=== PATIENT | female | born 1940 | race Caucasian/White ===

== ENCOUNTER 2018-08-23 15:17 | Emergency (ER) | payer MEDICARE ==
[~2018-08-23] VITALS: Ht 160 cm; Wt 80.9 kg
[~2018-08-23 15:17] MED LIST: CEPHALEXIN500 M1 PO; DALIRESP500 MCG PO; HCTZ 25MG TAB25 MG PO; INCRUSE EL62.5 MCG/A IH; IPRATROPIUM BROM3 M1 IH; LEVAQUIN 5500 MG/TA1 PO; PREDNISONE10 MG PO; PROVENTIL0.09 MG/A1 IH; RT ADVAIR HFA 1112 G IH; RT SPIRIVA18 MCG IH; SYNTHROID0.112 MG/T PO; TENORMIN 5050 MG/TAB PO
[2018-08-23 15:42] VITALS: TEMP 98.7
[2018-08-23 16:34] LABS: BASO # 0.1 (0.0-0.2); BASO % 0.6 % (0.0-2.0); EOS % 0.1 % (0-4.0); GRAN # 5.6 (1.4-6.5); GRAN % 68.5 % (42.2-75.2); HEMATOCRIT 38.5 % (37.0-47.0); HEMOGLOBIN 12.7 g/dl (12.5-16.0); LYMPH # 1.8 (1.2-3.4); LYMPH % 21.6 % (20.0-51.0); MEAN CELL VOLUME 96 fl (80.0-100.0); MEAN CORPUSCULAR HEMOGLOBIN 32 pg (27.0-31.0); MEAN CORPUSCULAR HGB CONC 33 g/dl (33.0-37.0); MEAN PLATELET VOLUME 9.5 fl (7.4-10.4); MONO # 0.8 (0.1-0.6); MONO % 9.1 % (1.7-9.3); PLATELET COUNT 253 K/mm3 (130-400); REDCELL DISTRIBUTION WIDTH-CV 13.1 % (11.5-14.5)
[2018-08-23 16:41] LABS: PROTHROMBIN TIME 11.3 SECONDS (9.7-12.8)
[2018-08-23 16:43] LABS: ALANINE AMINOTRANSFERASE 37 U/L (9-52); ALBUMIN 3.9 gm/dL (3.5-5.0); ALKALINE PHOSPHATASE 81 U/L (50-136); ANION GAP 5 mmol/L (7-16); AST,SGOT 28 U/L (15-37); BILIRUBIN,TOTAL 0.3 mg/dL (0.0-1.0); BLOOD UREA NITROGEN 28 mg/dL (7-17); CALCIUM 9.4 mg/dL (8.4-10.2); CARBON DIOXIDE 27 mmol/L (22-30); CHLORIDE 109 mmol/L (98-107); CREATININE, serum 1.08 mg/dL (0.52-1.25); GLUCOSE 98 mg/dL (74-106); POTASSIUM 3.9 mmol/L (3.4-5.0); SODIUM 140 mmol/L (137-145); TOTAL PROTEIN 6.8 gm/dL (6.4-8.2)
[2018-08-23 16:49] LABS: D-DIMER < 200.00 ng/mLDDu (200-230)
[2018-08-23 17:18] LABS: TROPONIN-I < 0.012 ng/mL (0.000-0.034)
[2018-08-23 18:00] VITALS: BP 144/78
[2018-08-23 18:30] VITALS: PULSE 86
== END 2018-08-23 18:36 | disposition home or self-care (01) ==
LOC: COL.ER 15:17
PROVIDERS: Emergency Medicine
DX: R00.0 Tachycardia, unspecified (principal); E86.0 Dehydration; I10 Essential (primary) hypertension; J44.9 Chronic obstructive pulmonary disease, unspecified; E03.9 Hypothyroidism, unspecified; Z90.49 Acquired absence of other specified parts of digestive tract; Z90.89 Acquired absence of other organs; Z90.710 Acquired absence of both cervix and uterus; Z87.891 Personal history of nicotine dependence

== ENCOUNTER 2021-05-23 11:46 | Inpatient (IN) | payer MEDICARE ==
[~2021-05-23] VITALS: Ht 160 cm; Wt 82.9 kg
[~2021-05-23 11:46] MED LIST changes: +LEVAQUIN 750MG750 M1 PO; +SPIRIVA RE2.5 MCG/Ac IH; +ZOLOFT 25MG25 MG PO
[2021-05-23 12:40] LABS: BASO % 0.4 % (0.0-2.0); GRAN # 3.8 (1.4-6.5); GRAN % 71.2 % (42.2-75.2); HEMOGLOBIN 11.2 g/dl (12.5-16.0); LYMPH # 0.8 (1.2-3.4); LYMPH % 15.8 % (20.0-51.0); MEAN CELL VOLUME 96 fl (80.0-100.0); MEAN CORPUSCULAR HEMOGLOBIN 31 pg (27.0-31.0); MEAN CORPUSCULAR HGB CONC 32 g/dl (33.0-37.0); MEAN PLATELET VOLUME 10.3 fl (7.4-10.4); MONO # 0.7 (0.1-0.6); MONO % 12.2 % (1.7-9.3); PLATELET COUNT 228 K/mm3 (130-400); RED BLOOD COUNT 3.66 M/mm3 (4.10-5.30); REDCELL DISTRIBUTION WIDTH-CV 14.8 % (11.5-14.5)
[2021-05-23 12:41] LABS: HEMATOCRIT 35.2 % (37.0-47.0)
[2021-05-23 12:42] LABS: ALANINE AMINOTRANSFERASE 44 U/L (4-34); ALBUMIN 3.7 gm/dL (3.5-5.0); ALKALINE PHOSPHATASE 102 U/L (50-136); ANION GAP 1 mmol/L (7-16); AST,SGOT 51 U/L (15-37); BILIRUBIN,TOTAL 0.2 mg/dL (0.0-1.0); BLOOD UREA NITROGEN 10 mg/dL (7-17); CALCIUM 8.8 mg/dL (8.4-10.2); CARBON DIOXIDE 32 mmol/L (22-30); CHLORIDE 100 mmol/L (98-107); CREATININE, serum 0.67 (0.52-1.25); GLUCOSE 99 mg/dL (74-106); SODIUM 133 mmol/L (137-145); TOTAL PROTEIN 6.9 gm/dL (6.4-8.2)
[2021-05-23 12:54] LABS: TROPONIN-I < 0.012 ng/mL (0.000-0.035)
[2021-05-23 16:06] VITALS: BP 117/64; PULSE 103; TEMP 99.3
--- NOTE | 2021-05-23 18:27 | NUR ---
1630 REPORT RECEIVED FROM NURSE MICHEL. PT TO BE ADMITTED FROM THE E.R. PT NOTEDTO BE ON 2 L OXYGEN VIA NC. PT AAOX3. PT NOTED TO HAVE SOME SHAKING OF THE HANDS. ADMISSION ASSSESSMENT COMPLETED. PT ORIENTED TO THE ROOM AND THE CALL-LIGHT. ISOLATION PRECAUTION MAINTAINED. CALL-LIGHT IN REACH. COMFORT MEASURES IN PLACE. PT WAITING ON HER MEAL TO ARRIVE. WILL CONTINUE TO MONITOR.
[2021-05-23 19:49] VITALS: BP 102/62; PULSE 103; TEMP 99.1
--- NOTE | 2021-05-23 21:19 | NUR ---
Pt has been pretty shaky and weak.She has been complaining of body ache. Tylenol was given. Daughter called for update. Currently on 2 L of oxygen. Will continue to monitor.
[2021-05-24 00:22] VITALS: BP 97/52; PULSE 92; TEMP 98.4
[2021-05-24 02:51] VITALS: BP 98/61; PULSE 70; TEMP 97.9
[2021-05-24 07:25] VITALS: BP 115/53; PULSE 84; TEMP 98
--- NOTE | 2021-05-24 08:00 | NUR ---
Patient laying in bed on her left side. A&Ox4. VSS 3L NC O2. Dyspnea at rest. IV CDI. Denies pain and discomfort. Patient a standby assist with walker to the bathroom. Droplet/contact precautions in place. No further needs expressed from the patient. Call light within reach
--- NOTE | 2021-05-24 10:28 | NUR ---
The patient is COVID positive. GRETTA contacted the patient's room phone to discuss discharge plan. The patient lives alone in [place]. She states that her daughter, Rosi Smith (ph#[phone]), also lives in [place]. She reports that she is normally independent with ADLs and has a rollator. She reports that she has oxygen at home that she uses nocturnally and as needed during the day. She states that she just got private duty services set up from [facility]. Her first visit with them was this week. She states that she hired them as needed. The patient's PCP is Dr. Iveth Lowery and she receives her medications from [facility]. She reports no difficulties obtaining her meds. The patient does not have a DPOA-HC. She reports that she would be interested in completing one while here. SW collaborated with the patient's RN. The patient's RN brought in the DPOA-HC form to the patient. The patient designated her daughter, Rosi, as her DPOA-HC and then her son, Mynor Smith, as the alternate. Mynor lives in [place]. GRETTA and the patient's RN witnessed the patient's signature. GRETTA placed a copy in the patient's chart. The copies of the patient's DPOA-HC will be placed in the patient's d/c packet. The patient states that she would like to return home upon discharge. GRETTA then contacted and updated the patient's daughter, Rosi. Rosi reports that she has some concerns about the patient returning home too soon. She states that the last time the patient returned home from the hospital, she was not ready and could not get around well. She states that she had to provide a lot of assistance to the patient at home. She inquired about post-acute rehab. GRETTA informed her of the different post-acute rehab options, but how most facilities require the patient to be 10 days out from when they tested positive, before they can take them. Rosi verbalized understanding. She would like to see how the patient does. SW to ask the hospitalist for PT/OT to be ordered. *Discharge plan: possibly home. Will await therapy's recs*
[2021-05-24] MEDS ORDERED: CARDIZEM 30MG T30 MG PO (10:53)
[2021-05-24] MEDS ORDERED: ZYRTEC 10MG10 MG PO (10:54)
[2021-05-24] MEDS ORDERED: PRILOSEC 20MG20 MG PO (10:56)
[2021-05-24] MEDS ORDERED: SINGULAIR 110 MG/TAB PO (10:56)
[2021-05-24] MEDS ORDERED: MUCINEX 60600 MG/TA1 PO (10:58)
[2021-05-24 11:22] VITALS: BP 113/62; PULSE 94; TEMP 97.9
[2021-05-24 15:28] VITALS: BP 122/58; PULSE 98; TEMP 98
--- NOTE | 2021-05-24 18:20 | NUR ---
Patient had an uneventful day. VSS 2L NC O2. Reported increased weakness with ambulation, standby assist with walker. IV CDI. Reports discomfort from laying in bed. Pain medication given when requested. Reported an episode of diarrhea. No further needs expressed from the patient. Call light within reach. Droplet/contact precautions in place
[2021-05-24 20:52] VITALS: BP 125/83; PULSE 88; TEMP 97.8
[2021-05-25] VITALS (7 sets, daily range): BP systolic 98–130; BP diastolic 50–84; PULSE 75–884; TEMP 97.6–99
--- NOTE | 2021-05-25 03:48 | NUR ---
Patient is alert and oriented. She denies any pain or SOB. She asked if she can have fluids in her oxygen for she complains of irritation in her nose. RT notified and its done. She slept most of the night. No complains noted, call light is within reach.
--- NOTE | 2021-05-25 09:02 | NUR ---
Pt awake and alert upon entry, no C/O pain at this time. Talkative. Shift assessments complete, left Pt call light in reachg, bed in lowest position.
--- NOTE | 2021-05-26 02:26 | NUR ---
Patient was coughing bad last night. RN gave her the PRN cough meds and Tylenol for she complained of back pain. After that RN checked her for follow up and she was asleep. Call light is within reach and continue to monitor.
[2021-05-26 04:07] VITALS: BP 123/56; PULSE 83; TEMP 98
[2021-05-26 08:36] VITALS: BP 126/65; PULSE 86; TEMP 98.7
--- NOTE | 2021-05-26 09:23 | NUR ---
Pt napping upon entry, easily awakened. No C/O pain at this time. Shift assessment complete, left Pt call light in reach, bed in lowest position.
--- NOTE | 2021-05-26 10:00 | NUR ---
SW informed by physician that patient would be going to [facility] in [place]. SW assisted with sending updates to facility. GRETTA will continue to [facility].
[2021-05-26 12:40] VITALS: BP 115/65; PULSE 119; TEMP 98.3
[2021-05-26 17:30] VITALS: BP 133/61; PULSE 91; TEMP 98.8
[2021-05-26 19:44] VITALS: BP 135/68; PULSE 93; TEMP 98
[2021-05-26 22:58] VITALS: BP 126/64; PULSE 97; TEMP 98.3
--- NOTE | 2021-05-27 03:03 | NUR ---
Patient is alert and oriented. She gets up standby with walker. She is at 3L and have dyspnea with exertion. She have her Pulse Oximeter in her pocket to check her O2 in the bathroom. She maintained the saturation between 92 to 94%. She is anxious about her oxygenation. She got Tylenol PRN last night for back pain. Otherwise she slept good. Continue to follow.
[2021-05-27 04:10] VITALS: BP 115/77; PULSE 90; TEMP 986
--- NOTE | 2021-05-27 09:01 | NUR ---
Pt sleeping upon entry, easily awakened. No C/O pain at this time. Shift saaessments complete, left Pt call light in reach, bed in lowest position.
[2021-05-27 09:27] VITALS: BP 138/63; PULSE 88; TEMP 98.6
--- NOTE | 2021-05-27 11:17 | NUR ---
The hospitalist notified GRETTA that he has spoken to Dr. Lowery at [facility] and Dr. Lowery has accepted the patient. GRETTA contacted and faxed updates to Hilario at [facility]. Hilario reports that their team reviewed the referral and they are declining the patient at this time, due to being too acute. She states that their nursing team and [employer] are the ones who make the final decision on if they can accept a patient or not. GRETTA updated the hospitalist and discussed IPR. An IPR consulted was ordered and GRETTA notified IPR Director, Alice.
[2021-05-27 11:51] VITALS: BP 113/67; PULSE 96; TEMP 98.2
[2021-05-27] MEDS ORDERED: MONODOX100 PO (12:45)
[2021-05-27] MEDS ORDERED: VEKLURY IV (12:46)
[2021-05-27] MEDS ORDERED: LOVENOX 4040 MG/0.4 SQ (12:47)
[2021-05-27] MEDS ORDERED: ROBITUSSIN DM 105 ML PO (12:47)
[2021-05-27] MEDS ORDERED: DECADRON6 MG PO (12:47)
[2021-05-27] MEDS ORDERED: TYLENOL 325MG325 MG PO (12:47)
[2021-05-27] MEDS ORDERED: RT Albuterol HFA MDI IH (12:48)
[2021-05-27] MEDS ORDERED: CARDIZEM 30MG T30 MG PO (12:49)
--- NOTE | 2021-05-27 13:41 | NUR ---
Hilario, at [facility], contacted GRETTA back. Hilario reports that their doctor spoke to their FRUIT INSPECTOR and they are now able to take the patient. SW updated the hospitalist, patient, and the patient's daughter (Rosi). The patient and Rosi would like to pursue with [facility]. Rosi reports that they are aware that they may have to private pay for the ambulance ride, but would like to go ahead and go by ambulance. The patient is to discharge today, 05/27, to [facility]. Transportation was scheduled at 1400, via [facility]. SW notified the patient, her RN, Hilario at , and the patient's daughter (Rosi) of the time. They were all agreeable to the time. GRETTA read the IM and the EMS Transfer Consent form outloud to the patient over the phone. The patient verbalized understanding and gave GRETTA approval to sign both forms on her behalf. No additional needs at this time.
--- NOTE | 2021-05-27 14:56 | NUR ---
Pt transferred to [facility]. Pt transported via [facility].
[2021-06-29] MEDS ORDERED: AMOXICILLIN 8751 TAB PO (00:29)
== END 2021-05-27 14:58 | disposition swing bed (61) | DRG 177 ==
LOC: COL.ER 11:46 → MEDICAL 13:39
PROVIDERS: Physician Assistant; ADMIT Internal Medicine
PROC: XW033E5 Introduction of Remdesivir Anti-infective into Peripheral Vein, Percutaneous Approach, New Technology Group 5 (ICD-10-PCS; principal; 2021-05-25)
DX: U07.1 COVID-19 (principal); J12.82 Pneumonia due to coronavirus disease 2019; J96.01 Acute respiratory failure with hypoxia; J44.0 Chronic obstructive pulmonary disease with (acute) lower respiratory infection; G72.9 Myopathy, unspecified; F41.9 Anxiety disorder, unspecified; E89.0 Postprocedural hypothyroidism; Z90.49 Acquired absence of other specified parts of digestive tract; Z90.710 Acquired absence of both cervix and uterus; Z87.891 Personal history of nicotine dependence
CPT/HCPCS: 99223-AI; 99232-AI; 99233-AI; 99239; J0696; J7050; J8540

== ENCOUNTER 2021-06-28 19:27 | Emergency (ER) | payer MEDICARE ==
[~2021-06-28] VITALS: Ht 160 cm; Wt 81.4 kg
[~2021-06-28 19:27] MED LIST changes: +CARDIZEM 30MG T30 MG PO; +DECADRON6 MG PO; +LOVENOX 4040 MG/0.4 SQ; +MONODOX100 PO; +MUCINEX 60600 MG/TA1 PO; +PRILOSEC 20MG20 MG PO; +ROBITUSSIN DM 105 ML PO; +RT Albuterol HFA MDI IH; +SINGULAIR 110 MG/TAB PO; +TYLENOL 325MG325 MG PO; +VEKLURY IV; +ZYRTEC 10MG10 MG PO
[2021-06-28 21:58] LABS: ARTERIAL BLD GAS O2 SATURATION 95.2 % (92-100); ARTERIAL BLD GAS TCO2 CT 30.2; ARTERIAL BLOOD GAS BASE EXCESS 4.8 (-2-2); ARTERIAL BLOOD GAS PCO2 41.2 mmHg (35-45); ARTERIAL BLOOD GAS PO2 73.6 mmHg (80-100); ARTERIAL BLOOD GAS pH 7.47 (7.35-7.45)
[2021-06-28 22:03] LABS: BASO # 0.1 (0.0-0.2); EOS # 0.1 (0.0-0.7); EOS % 0.7 % (0-4.0); GRAN % 69.9 % (42.2-75.2); LYMPH # 1.6 (1.2-3.4); MEAN CELL VOLUME 100 fl (80.0-100.0); MEAN CORPUSCULAR HGB CONC 31 g/dl (33.0-37.0); MEAN PLATELET VOLUME 10.2 fl (7.4-10.4); MONO # 0.8 (0.1-0.6); MONO % 9.8 % (1.7-9.3); PLATELET COUNT 616 K/mm3 (130-400); RED BLOOD COUNT 3.17 M/mm3 (4.10-5.30); REDCELL DISTRIBUTION WIDTH-CV 16.5 % (11.5-14.5)
[2021-06-28 22:04] LABS: HEMATOCRIT 31.7 % (37.0-47.0); HEMOGLOBIN 9.7 g/dl (12.5-16.0); MEAN CORPUSCULAR HEMOGLOBIN 31 pg (27.0-31.0)
[2021-06-28 22:10] LABS: CALCIUM 9.3 mg/dL (8.4-10.2); CREATININE, serum 0.54 (0.52-1.25); POTASSIUM 5.1 mmol/L (3.4-5.0)
[2021-06-29 00:24] VITALS: BP 149/68; PULSE 90; TEMP 98.7
[2021-06-29] MEDS ORDERED: AMOXICILLIN 8751 TAB PO (00:29)
== END 2021-06-28 22:39 | disposition home or self-care (01) ==
LOC: COL.ER 19:27
PROVIDERS: Emergency Medicine
DX: U07.1 COVID-19 (principal); E87.3 Alkalosis; R09.02 Hypoxemia; J44.9 Chronic obstructive pulmonary disease, unspecified; E05.00 Thyrotoxicosis with diffuse goiter without thyrotoxic crisis or storm; Z79.899 Other long term (current) drug therapy

== ENCOUNTER 2021-10-02 12:37 | Inpatient (IN) | payer MEDICARE ==
[~2021-10-02] VITALS: Ht 160 cm; Wt 81.4 kg
[~2021-10-02 12:37] MED LIST changes: +AMOXICILLIN 8751 TAB PO
[2021-10-02 14:16] LABS: BASO # 0.1 K/mm3 (0.0-0.2); BASO % 0.8 % (0.0-2.0); EOS # 0.1 K/mm3 (0.0-0.7); EOS % 0.6 % (0-4.0); GRAN # 8.5 K/mm3 (1.4-6.5); GRAN % 79.8 % (42.2-75.2); LYMPH # 1.1 K/mm3 (1.2-3.4); LYMPH % 10.2 % (20.0-51.0); MEAN CELL VOLUME 86 fl (80.0-100.0); MEAN CORPUSCULAR HGB CONC 27 g/dl (33.0-37.0); MEAN PLATELET VOLUME 10.7 fl (7.4-10.4); MONO # 0.8 K/mm3 (0.1-0.6); MONO % 7.9 % (1.7-9.3); PLATELET COUNT 388 K/mm3 (130-400); RED BLOOD COUNT 2.24 M/mm3 (4.10-5.30); REDCELL DISTRIBUTION WIDTH-CV 17.6 % (11.5-14.5)
[2021-10-02 14:18] LABS: HEMATOCRIT 19.2 % (37.0-47.0); HEMOGLOBIN 5.2 g/dl (12.5-16.0); MEAN CORPUSCULAR HEMOGLOBIN 23 pg (27.0-31.0)
[2021-10-02 14:32] LABS: ALANINE AMINOTRANSFERASE 20 U/L (0-55); ALBUMIN 3.5 gm/dL (3.4-4.8); ALKALINE PHOSPHATASE 79 U/L (40-150); ANION GAP 11 mmol/L (7-16); AST,SGOT 27 U/L (5-34); BILIRUBIN,TOTAL 0.3 mg/dL (0.2-1.2); BLOOD UREA NITROGEN 10 mg/dL (10-20); CALCIUM 8.7 mg/dL (8.4-10.2); CARBON DIOXIDE 29 mmol/L (23-31); CHLORIDE 101 mmol/L (98-107); CREATININE, serum 0.72 mg/dL (0.57-1.11); GLUCOSE 120 mg/dL (70-99); POTASSIUM 4.1 mmol/L (3.5-4.5); SODIUM 141 mmol/L (136-145); TOTAL PROTEIN 6.9 gm/dL (6.2-8.1)
[2021-10-02 14:41] LABS: TROPONIN-I < 0.010 ng/mL (0.00-0.033)
[2021-10-02] MEDS ORDERED: ASPI325T6 PO (16:36)
[2021-10-02 16:41] LABS: RETIC # 0.08 M/mm3 (0.02-0.16); RETIC % 3.8 % (0.5-3.52)
--- NOTE | 2021-10-02 23:28 | NUR ---
ARRIVED TO UNIT VIA STRETCHER, INCONT OF BLADDER, oO2@4l PER MASK IN USE, AWAKE, ALERT, ORIENTED X 4, ASSESSMENT COMPLETED AT THIS TIME, RECEIVING BLOOD AT THIS TIME, NO S/S OF REACTION,
[2021-10-02 23:35] VITALS: BP 168/56; PULSE 101; TEMP 98.1
[2021-10-03] VITALS (13 sets, daily range): BP systolic 85–167; BP diastolic 53–70; PULSE 94–106; TEMP 97.4–98.6
[2021-10-03 00:19] LABS: HAPTOGLOBIN 212 mg/dL (63-273)
[2021-10-03 00:39] LABS: PROCALCITONIN <0.05 ng/mL (0.00-0.09)
--- NOTE | 2021-10-03 03:08 | NUR ---
Patient tolerated blood transfusion w/o issue, resting quietly, updated on plan of care, no c/o pain at this time, tolerating O2@5L per oxymask, fall precautions in place, call aden w/i reach, all questions answered
--- NOTE | 2021-10-03 05:43 | NUR ---
Resting quietly, no c/o at this time, O2@5L per NC in use, patient switches between mask and NC at leisure, SHOB noted on exertion, afebrile, VS stable, updated on plan of care.
[2021-10-03 07:14] LABS: BASO % 0.2 % (0.0-2.0); GRAN % 86.5 % (42.2-75.2); LYMPH # 0.6 K/mm3 (1.2-3.4); LYMPH % 9.8 % (20.0-51.0); MEAN CORPUSCULAR HGB CONC 29 g/dl (33.0-37.0); MONO # 0.2 K/mm3 (0.1-0.6); MONO % 2.6 % (1.7-9.3); PLATELET COUNT 347 K/mm3 (130-400); RED BLOOD COUNT 3.11 M/mm3 (4.10-5.30); REDCELL DISTRIBUTION WIDTH-CV 17.4 % (11.5-14.5)
[2021-10-03 07:19] LABS: HEMATOCRIT 25.1 % (37.0-47.0); HEMOGLOBIN 7.2 g/dl (12.5-16.0); MEAN CELL VOLUME 81 fl (80.0-100.0); MEAN CORPUSCULAR HEMOGLOBIN 23 pg (27.0-31.0)
[2021-10-03 07:50] LABS: CALCIUM 8.9 mg/dL (8.4-10.2); CREATININE, serum 0.62 mg/dL (0.57-1.11); POTASSIUM 4.2 mmol/L (3.5-4.5)
--- NOTE | 2021-10-03 07:58 | NUR ---
PT BLOOD PRESSURE LOW, TACHYCARDIC. RECHECKED AT THIS TIME, 167/67 ON RIGHT ARM. TACHYCARDIA STILL PRESENT. PT STATES HEADACHE 06/11.
--- NOTE | 2021-10-03 08:00 | NUR ---
PT ALERT AND ORIENTED. PT ANXIOUS ABOUT SPO2, REASSURED SPO2 AT 94%. PT HAS EXPIRATORY WHEEZES NOTED IN ALL RIGHT LOBES AND LEFT UPPER LOBE. PT LEFT LOWER LOBE HAS COARSE CRACKLES. PT AHS SORENESS WITH BILATERAL LOWER EXTREMITIES TO TOUCH. PT HAS PITTING IN BILATERAL LOWER EXTREMITIES 3+ AND NON-PITTING EDEMA IN BILATERAL UPPER EXTREMITIES. PT HAD BOUT OF INCONTINENCE, CLEANED AND NEW GOWN GIVEN. PT CALL LIGHT AND BREAKFAST WITHIN REACH.
--- NOTE | 2021-10-03 12:20 | NUR ---
SCDS NOT ON, PT LEGS TENDER TO TOUCH. VIPUL WELSH TO BE NOTIFIED.
--- NOTE | 2021-10-03 13:09 | NUR ---
Va, from [facility] , contacted GRETTA. Va reports that the patient has home health services through them for nursing home/PT/OT. She reports that they are good with resuming services with the patient upon discharge. GRETTA contacted the patient's daughter, Rosi Smith (ph#[phone]), to discuss discharge plan. The patient lives in [place] with Rosi and her . Rosi reports that the patient is independent with ADLs and mostly does spongebaths. She has a rollator, transport chair, and home oxygen. The patient's PCP is Dr. Popeye Sullivan and she receives her medications from [facility]. The patient's DPOA-HC is in EMR and it designates Rosi and then the patient's son, Mynor Smith. Rosi reports that the plan is for the patient to return back home with her and resume services from [facility] upon discharge. GRETTA faxed updates to [facility] . SW to continue to follow. *Discharge plan: home with daughter and son-in-law and home health*
[2021-10-03] MEDS ORDERED: NASACORT OTC NS (13:18)
[2021-10-03] MEDS ORDERED: REGLAN 5MG T5 MG/TAB PO (13:19)
[2021-10-03] MEDS ORDERED: LEXAPRO 10MG10 MG PO (13:19)
[2021-10-03] MEDS ORDERED: CARDIZEM 30MG T30 MG PO (13:20)
[2021-10-03 13:55] LABS: COLLECTION METHOD CLEAN CATCH
[2021-10-03 14:04] LABS: PH 7 (5-8); SQUAMOUS EPITHELIAL 0-2 /hpf (0-10); URINE APPEARANCE Clear (CLEAR/HAZY); URINE BACTERIA None Seen (NONE SEEN); URINE BILIRUBIN Negative (NEGATIVE); URINE BLOOD Negative (NEGATIVE); URINE COLOR Straw (YELLOW); URINE GLUCOSE Negative (NEGATIVE); URINE KETONE Trace (NEGATIVE); URINE LEUKOCYTE ESTERASE Negative (NEGATIVE); URINE NITRATE Negative (NEGATIVE); URINE PROTEIN(semi-quant) Negative (NEGATIVE); URINE RBC 0-2 /hpf (0-2); URINE UROBILINOGEN Negative (NEGATIVE)
--- NOTE | 2021-10-03 16:24 | NUR ---
PT TACHYCARDIA NOTED, PT WAS AMBULATED TO AND FROM COMMODE AT TIME. NO CHESTPAIN OR DIZZINESS REPORTED.
--- NOTE | 2021-10-03 17:43 | NUR ---
CHECKED ON PT AND FOUND PT STATING MINOR PANIC ATTACK, THERAPEUTIC COMMUNICATION UTILIZED.
--- NOTE | 2021-10-03 18:10 | NUR ---
Pt continuing on plan of care. Pt had CT today. Pt daughter visited today. Pt vital signs remained stable, expressed anxiety of SpO2 at 94%. This RN attempt at reassurance 94% is okay, pt still continues to ask for oxygen to be increased. Notified respiratory therapy for further education. No significant changes noted this shift.
--- NOTE | 2021-10-03 19:40 | NUR ---
PT REFUSING DINNER, REQUESTS [facility]AN[facility]A ENSURE
--- NOTE | 2021-10-03 20:00 | NUR ---
PT RESTING IN BED. ANXIOUS AFFECT. CHECKS HER OWN O2 SAT'S. VERY FOCUSED ON READING O2 AT 6L NC PER PT REQUEST. EDUCATION RE COPD AND O2 GIVEN. PT ABLE TO MOVE ABOUT TO SIDE OF BED PER SELF FOR COMFORT. TELE CONTINUES.
[2021-10-04] VITALS (9 sets, daily range): BP systolic 112–155; BP diastolic 43–71; PULSE 79–102; TEMP 97.6–98.4
[2021-10-04 07:30] LABS: BASO % 0.4 % (0.0-2.0); EOS % 0.1 % (0-4.0); GRAN # 4.5 K/mm3 (1.4-6.5); GRAN % 62.3 % (42.2-75.2); LYMPH # 1.7 K/mm3 (1.2-3.4); LYMPH % 23.2 % (20.0-51.0); MEAN CELL VOLUME 83 fl (80.0-100.0); MEAN CORPUSCULAR HGB CONC 29 g/dl (33.0-37.0); MEAN PLATELET VOLUME 10.2 fl (7.4-10.4); MONO % 13.6 % (1.7-9.3); PLATELET COUNT 346 K/mm3 (130-400); RED BLOOD COUNT 2.87 M/mm3 (4.10-5.30); REDCELL DISTRIBUTION WIDTH-CV 17.3 % (11.5-14.5)
[2021-10-04 07:40] LABS: HEMATOCRIT 23.9 % (37.0-47.0); HEMOGLOBIN 6.8 g/dl (12.5-16.0); MEAN CORPUSCULAR HEMOGLOBIN 24 pg (27.0-31.0)
[2021-10-04 07:56] LABS: CALCIUM 9.4 mg/dL (8.4-10.2); CREATININE, serum 0.64 mg/dL (0.57-1.11); POTASSIUM 3.1 mmol/L (3.5-4.5)
--- NOTE | 2021-10-04 08:00 | NUR ---
Patient laying in bed, HOB elevated. A&Ox4. VSS 4L NC O2, dyspnea at rest and with exertion. Patients own O2 pulse ox at the bedside. Denies pain. IV CDI. Patient refusing breakfast, states "im not a morning person". Nurse assisted the patient with 1xassist to the BSC. No further needs expressed. Call light within reach
--- NOTE | 2021-10-04 11:43 | NUR ---
Blood transfusion started. Patient A&Ox4. VSS 4L NC O2. IV CDI. Denies pain and discomfort. No further needs expressed. Call light within reach
--- NOTE | 2021-10-04 14:15 | NUR ---
Transfusion complete. Patient tolerated well. VSS. IC CDI. A&Ox4. Denies pain and discomfort. No further needs expressed. Call light within reach
[2021-10-04 17:02] LABS: HEMATOCRIT 31.1 % (37.0-47.0)
--- NOTE | 2021-10-04 19:00 | NUR ---
Patient sitting up on the edge of bed eating dinner. States that she feels much better and has more energy. A&Ox4. VSS 4L NC O2, dyspnea at rest and exertion. IV CDI. Denies pain and discomfort. Nurse has helped the patient to the [facility] several times throughout the shift. No further needs expressed. Call light within reach
--- NOTE | 2021-10-04 23:59 | NUR ---
Patient alert and oriented. Patient denies any pain or discomfort. Patient currently on 4L oxygen via NC. Patient denies SOB while at rest. Patient ate 50% of dinner. Assisted patient to bedside commode. Patient ambulates with steady gait. Call light in reach. Will continue to monitor.
[2021-10-05] VITALS: TEMP 98
[2021-10-05 02:05] VITALS: BP 111/62; PULSE 82; TEMP 98
[2021-10-05 05:30] VITALS: BP 130/43; PULSE 90; TEMP 97.6
[2021-10-05 07:52] LABS: C-REACTIVE PROTEIN 0.56 mg/dL (0.00-0.50); CREATININE, serum 0.65 mg/dL (0.57-1.11); POTASSIUM 3.7 mmol/L (3.5-4.5)
--- NOTE | 2021-10-05 08:00 | NUR ---
Patient laying in bed getting a breathing treatment with RT. Was sleeping, but easily awakened. A&Ox4. VSS 4L NC O2. No reported SOB. States that she is just tired and wants to rest. Denies pain and discomfort. No further needs expressed. Call light within reach
[2021-10-05 08:05] LABS: BASO # 0.1 K/mm3 (0.0-0.2); BASO % 0.7 % (0.0-2.0); EOS % 0.3 % (0-4.0); GRAN # 3.8 K/mm3 (1.4-6.5); GRAN % 55.6 % (42.2-75.2); LYMPH # 1.9 K/mm3 (1.2-3.4); LYMPH % 27.3 % (20.0-51.0); MEAN CELL VOLUME 83 fl (80.0-100.0); MEAN CORPUSCULAR HGB CONC 29 g/dl (33.0-37.0); MONO # 1.1 K/mm3 (0.1-0.6); MONO % 15.8 % (1.7-9.3); PLATELET COUNT 335 K/mm3 (130-400); REDCELL DISTRIBUTION WIDTH-CV 17.2 % (11.5-14.5)
[2021-10-05 08:07] LABS: HEMATOCRIT 28.9 % (37.0-47.0); HEMOGLOBIN 8.4 g/dl (12.5-16.0); MEAN CORPUSCULAR HEMOGLOBIN 24 pg (27.0-31.0)
[2021-10-05 11:40] VITALS: BP 137/50; PULSE 80; TEMP 97.9
[2021-10-05 16:19] VITALS: BP 131/45; PULSE 83; TEMP 98.2
--- NOTE | 2021-10-05 18:21 | NUR ---
Patient had an uneventful day. Spent most of the shift resting. States that she feels much better. Ambulating to the bathroom with standby assist. A&Ox4. VSS 4L NC O2. No reported SOB. IV CDI. No further needs expressed. Call light within reach
[2021-10-05 22:15] VITALS: BP 129/41; PULSE 88; TEMP 97.8
--- NOTE | 2021-10-05 23:11 | NUR ---
Patient sitting up in bed and having dinner upon enter the room. Patient A/Ox4. Patient states feeling much better today. Patient denies pain or SOB. Breathing even and unlabored. All scheduled meds given per DEC. Stand-by assist provided to use bathroom. Call light in reach. Will continue to monitor.
[2021-10-06 05:44] VITALS: BP 147/52; PULSE 82; TEMP 98.2
[2021-10-06 06:44] LABS: MEAN CELL VOLUME 84 fl (80.0-100.0); MEAN CORPUSCULAR HGB CONC 28 g/dl (33.0-37.0); PLATELET COUNT 339 K/mm3 (130-400); RED BLOOD COUNT 3.55 M/mm3 (4.10-5.30); REDCELL DISTRIBUTION WIDTH-CV 17.1 % (11.5-14.5)
[2021-10-06 07:16] LABS: CALCIUM 9.9 mg/dL (8.4-10.2); CREATININE, serum 0.69 mg/dL (0.57-1.11); POTASSIUM 4.3 mmol/L (3.5-4.5)
[2021-10-06 07:38] LABS: HEMATOCRIT 29.7 % (37.0-47.0); HEMOGLOBIN 8.4 g/dl (12.5-16.0); MEAN CORPUSCULAR HEMOGLOBIN 24 pg (27.0-31.0)
[2021-10-06 08:00] VITALS: BP 135/40; PULSE 81; TEMP 98.1
--- NOTE | 2021-10-06 08:00 | NUR ---
Patient laying in bed, states that she is tired and wants to rest. A&Ox4. VSS 3L NC O2, no reported SOB. IV CDI. Denies pain and discomfort. Nurse updated the patients daughter. Patient independent with repositioning and eating. No further needs expressed. Call light within reach
[2021-10-06] MEDS ORDERED: FERROUS SU325 MG/TAB PO (09:08)
[2021-10-06] MEDS ORDERED: NEURONTIN100 MG/CAP PO (09:17)
[2021-10-06 11:52] VITALS: BP 129/43; PULSE 60; PULSE 80; TEMP 98.1
--- NOTE | 2021-10-06 14:37 | NUR ---
eduardo FAXED dc ORDER TO [facility]
--- NOTE | 2021-10-06 14:47 | NUR ---
Discharge paperwork reviewed with the patient. Patient verbalized an understanding to follow doctors orders. IV removed, tip intact. No further needs expressed. Waiting on daughter to pharmacy picking tech the patient. Call light within reach
--- NOTE | 2021-10-06 15:53 | NUR ---
Patient taken by wheelchair to ED entrance. Discharge paperwork and personal belongings with the patient. No further needs expressed
== END 2021-10-06 15:54 | disposition home health service (06) | DRG 811 ==
LOC: COL.ER 12:37 → MEDICAL 14:57
PROVIDERS: Personal Emergency Response Attendant; Physician Assistant; ADMIT Internal Medicine
DX: D50.9 Iron deficiency anemia, unspecified (principal); J96.21 Acute and chronic respiratory failure with hypoxia; J90 Pleural effusion, not elsewhere classified; J98.11 Atelectasis; F41.9 Anxiety disorder, unspecified; K21.9 Gastro-esophageal reflux disease without esophagitis; E03.9 Hypothyroidism, unspecified; Z90.49 Acquired absence of other specified parts of digestive tract; Z86.16 Personal history of COVID-19; Z90.710 Acquired absence of both cervix and uterus; Z87.891 Personal history of nicotine dependence; R00.0 Tachycardia, unspecified; E05.00 Thyrotoxicosis with diffuse goiter without thyrotoxic crisis or storm; R32 Unspecified urinary incontinence; J43.9 Emphysema, unspecified
CPT/HCPCS: 99223-AI; 99232-AI; 99233-AI; 99239; A9284; J0456; J0696; J2930; J3475; J7050; J7512; P9016

== ENCOUNTER 2022-05-23 12:49 | Day surgery (SDC) | payer MEDICARE ==
[~2022-05-23] VITALS: Ht 160 cm; Wt 80.8 kg
[~2022-05-23 12:49] MED LIST changes: +ASPI325T6 PO; +FERROUS SU325 MG/TAB PO; +LEXAPRO 10MG10 MG PO; +NASACORT OTC NS; +NEURONTIN100 MG/CAP PO; +REGLAN 5MG T5 MG/TAB PO
[2022-05-23 13:50] VITALS: BP 144/76; PULSE 89; TEMP 97.9
[2022-05-23] MEDS ORDERED: RT ADVAIR HFA 1112 G IH (14:08)
[2022-05-23] MEDS ORDERED: SPIRIVA RESPIMAT4 GM IH (14:09)
[2022-05-23] MEDS ORDERED: VENTOLIN0.09 MG IH (14:10)
[2022-05-23] MEDS ORDERED: REGLAN 5MG T5 MG/TAB PO (14:10)
[2022-05-23] MEDS ORDERED: NEURONTIN100 MG/CAP PO (14:11)
[2022-05-23] MEDS ORDERED: PROTEIN1 PDR PO (14:12)
[2022-05-23 14:45] VITALS: BP 123/61; PULSE 99; TEMP 96.9
[2022-05-23 15:00] VITALS: BP 121/63; PULSE 95
[2022-05-23 15:15] VITALS: BP 135/72; PULSE 96
--- NOTE | 2022-05-23 16:18 | NUR ---
1445 PT RETURNED TO BAY 1 VIA CART. TRANSFERRED TO CHAIR WITH RN ASSIST. ALERT AND ORIENTED. MONITORS ATTACHED, INTERVALS AND ALARMS SET. VSS ON 4L OF OXYGEN. DAUGHTER REPORTS HOME OXYGEN OF 4 - 5L. PT DENIES PAIN OR NAUSEA. FOOD AND DRINK PROVIDED. CALL LIGHT IN REACH. 1500 VSS. PT DENIES DISCOMFORT. TOLERATING FOOD AND DRINK WELL. 1515 VSS. PT DENIES DISCOMFORT. 1530 IV REMOVED WITHOUT COMPLICATION. PT ALLOWED TO DRESS. WAITING FOR DR TO SPEAK WITH PT. 1550 DR IN TO SPEAK WITH PT. REVIEWED DISCHARGE INSTRUCTIONS AND EDUCATION MATERIAL, ANSWERED ALL QUESTIONS. IV REMOVED WITHOUT COMPLICATIONS. 1618 TRANSFERRED PT VIA PT WHEELCHAIR WITH HOME OXYGEN AT 4L TO PERSONAL VEHICLE TO BE DRIVEN HOME BY DAUGHTER.
== END 2022-05-23 16:18 | disposition home or self-care (01) ==
LOC: SDCO 12:49
DX: K57.30 Diverticulosis of large intestine without perforation or abscess without bleeding (principal); D50.9 Iron deficiency anemia, unspecified; K64.1 Second degree hemorrhoids; K44.9 Diaphragmatic hernia without obstruction or gangrene; K21.9 Gastro-esophageal reflux disease without esophagitis; Z87.891 Personal history of nicotine dependence; Z86.16 Personal history of COVID-19
CPT/HCPCS: J2704; J7120

== ENCOUNTER 2023-11-02 13:11 | Emergency (ER) | payer MEDICARE ==
[~2023-11-02] VITALS: Ht 160 cm; Wt 83.2 kg
[~2023-11-02 13:11] MED LIST changes: +PROTEIN1 PDR PO; +SPIRIVA RESPIMAT4 GM IH; +VENTOLIN0.09 MG IH
[2023-11-02 13:16] VITALS: TEMP 98.4
[2023-11-02 14:25] LABS: BASO # 0.1 K/mm3 (0.0-0.2); BASO % 0.4 % (0.0-2.0); EOS % 0.1 % (0.0-4.0); GRAN # 9.1 K/mm3 (1.4-6.5); GRAN % 78.5 % (42.2-75.2); HEMOGLOBIN 10.3 g/dl (12.5-16.0); LYMPH # 1.2 K/mm3 (1.2-3.4); LYMPH % 10.6 % (20.0-51.0); MEAN CELL VOLUME 98 fl (80.0-100.0); MEAN CORPUSCULAR HEMOGLOBIN 31 pg (27-31); MEAN CORPUSCULAR HGB CONC 31 g/dl (33.0-37.0); MEAN PLATELET VOLUME 10.1 fl (7.4-10.4); MONO # 1.2 K/mm3 (0.1-0.6); MONO % 10.1 % (1.7-9.3); PLATELET COUNT 251 K/mm3 (130-400); RED BLOOD COUNT 3.36 M/mm3 (4.10-5.30); REDCELL DISTRIBUTION WIDTH-CV 13.7 % (11.5-14.5)
[2023-11-02 14:27] LABS: HEMATOCRIT 32.9 % (37.0-47.0)
[2023-11-02 14:46] LABS: ALBUMIN 3.2 gm/dL (3.4-4.8); BILIRUBIN,TOTAL 0.8 mg/dL (0.2-1.2); CALCIUM 9.9 mg/dL (8.4-10.2); CREATININE, serum 0.68 mg/dL (0.57-1.11); POTASSIUM 3.7 mmol/L (3.5-4.5); TOTAL PROTEIN 7.1 gm/dL (6.2-8.1)
[2023-11-02] MEDS ORDERED: ALBUTEROL0.83 MG/ML IH (15:23)
[2023-11-02] MEDS ORDERED: PREDNISONE20 MG PO (15:23)
[2023-11-02] MEDS ORDERED: PROAIR HFA0.09 MG/AC IH ×2 (15:23)
[2023-11-02] MEDS ORDERED: LEVAQUIN 5500 MG/TA1 PO (15:25)
[2023-11-02 16:26] VITALS: BP 118/60; PULSE 109
--- NOTE | 2023-11-03 15:37 | NUR ---
broom worker contacted patient and patient's daughter and discussed home health as was recommended from ED team. Patient states she does not leave her home due to oxygen needs and would like home health for physical therapy. Worker provided home health options, per Medicare.gov share form. Patient states she would like to utilize [facility] for physical therapy as she has had them previously. Worker contacted Dr Sullivan's bricklayer's assistant, Sydni and advised of the above. Sydni will send orders to [facility]. Worker contacted [facility] and gave the referral as well as clinical updates.
--- NOTE | 2023-11-04 09:18 | NUR ---
beef cattle farm worker confirmed that [facility] will admit patient when orders received by Dr Sullivan.
== END 2023-11-02 16:27 | disposition home or self-care (01) ==
LOC: COL.ER 13:11
PROVIDERS: Personal Emergency Response Attendant
DX: J44.1 Chronic obstructive pulmonary disease with (acute) exacerbation (principal); R53.1 Weakness; Z87.891 Personal history of nicotine dependence
CPT/HCPCS: J1956; J2930; J7030

== ENCOUNTER 2024-07-19 17:01 | Emergency (ER) | payer MEDICARE ==
[~2024-07-19] VITALS: Ht 160 cm; Wt 80.9 kg
[~2024-07-19 17:01] MED LIST changes: +ALBUTEROL0.83 MG/ML IH; +PREDNISONE20 MG PO; +PROAIR HFA0.09 MG/AC IH
[2024-07-19 17:02] VITALS: TEMP 98.7
[2024-07-19] MEDS ORDERED: Acetaminophen 325 MG TAB PO ONE (19:00)
[2024-07-19 19:18] VITALS: BP 119/65; PULSE 103
== END 2024-07-19 19:18 | disposition home or self-care (01) ==
LOC: COL.ER 17:01
DX: S51.811A Laceration without foreign body of right forearm, initial encounter (principal); Z23 Encounter for immunization; W10.9XXA Fall (on) (from) unspecified stairs and steps, initial encounter; Y92.009 Unspecified place in unspecified non-institutional (private) residence as the place of occurrence of the external cause